=== PATIENT | female | born 1970 | race African-American/Black ===

== ENCOUNTER 2022-04-18 22:41 | Emergency (ER) | payer OTHER ==
[~2022-04-18] VITALS: Ht 165.1 cm; Wt 127.0 kg
[2022-04-18] MEDS ORDERED: DOXYCYCLINE HY100 M3 PO (22:46)
== END 2022-04-18 23:17 | disposition home or self-care (01) ==
LOC: ER 22:46
DX: L02.412 Cutaneous abscess of left axilla (principal); I10 Essential (primary) hypertension
CPT/HCPCS: 99282